=== PATIENT | female | born 1995 | race Two or more races ===

== ENCOUNTER 2020-07-31 17:58 | Inpatient (IN) | payer OTHER ==
[~2020-07-31] VITALS: Ht 152.4 cm; Wt 52.6 kg
[2020-07-31] MEDS ORDERED: PRENATAL TABLE1 EAC3 PO (18:35)
== END 2020-08-03 14:22 | disposition home or self-care (01) | DRG 807 ==
LOC: LDR 17:58 → OB/GYN 17:58
PROVIDERS: ADMIT Obstetrics & Gynecology; ATTEND Obstetrics & Gynecology
PROC: 10E0XZZ Delivery of Products of Conception, External Approach (ICD-10-PCS; principal; 2020-07-31)
PROC: 4A1HXFZ Monitoring of Products of Conception, Cardiac Rhythm, External Approach (ICD-10-PCS; 2020-07-31)
DX: O24.420 Gestational diabetes mellitus in childbirth, diet controlled (principal); Z37.0 Single live birth; Z3A.37 37 weeks gestation of pregnancy; Z20.822 Contact with and (suspected) exposure to COVID-19